=== PATIENT | female | born 1960 | race Caucasian/White ===

== ENCOUNTER → 2017-04-04 | Outpatient (CLI) | payer BC | END | disposition home or self-care (01) | LOC: PCVCIMAG 08:37 | PROVIDERS: ATTEND Internal Medicine | DX: I35.0 Nonrheumatic aortic (valve) stenosis (principal); Q23.9 Congenital malformation of aortic and mitral valves, unspecified; E78.2 Mixed hyperlipidemia; E78.5 Hyperlipidemia, unspecified | CPT/HCPCS: 80061; 93005; 93017; G0463; 93306 ==

== ENCOUNTER → 2017-04-07 | Outpatient (CLI) | payer BC | END | disposition home or self-care (01) | LOC: PCVCIMAG 09:06 | PROVIDERS: ATTEND Internal Medicine | DX: I35.0 Nonrheumatic aortic (valve) stenosis (principal); Q23.9 Congenital malformation of aortic and mitral valves, unspecified; E78.2 Mixed hyperlipidemia; E78.5 Hyperlipidemia, unspecified | CPT/HCPCS: 93306; G0463 ==

== ENCOUNTER → 2017-10-05 | Outpatient (CLI) | payer BC ==
[~2017-10-05] MED LIST: BENZOCAINE ONE 20% MUCOSAL SPRAY.; IOHEXOL 350 MG/ML 100 ML VIAL. ONE; IOHEXOL 350 MG/ML 50 ML VIAL. ONE; IV NORMAL SALINE 1000ML BAG 1,000 ML ONE; LIDOCAINE 1% Multi-Dose 20 ML VIAL. ONE; MIDAZOLAM HCL/PF 2 MG/2 ML VIAL. ONE; fentaNYL PF VIAL 100 MCG/2 ML VIAL ONE
--- NOTE | 2017-10-05 11:13 | PCVCIMAG ---
APPROVED REPORT Study performed: 10/05/2017 09:09:17 EXAM: Comprehensive 2D, Doppler, and color-flow Echocardiogram Patient Location: [facility] Status: routine BSA: 1.89 HR: 71 bpmBP: 133/88 mmHg Rhythm: NSR Other Information Study Quality: Good Indications Aortic Valve Disease Echo Enhancing Agent Indication: Rule Out Septal Defect Agent(s) / Amount(s) Used: Agitated Saline cc Comments: Negative contrast study for shunt flow. 2D Dimensions LVOT Diam: 20.37 (18-24mm) Aortic Valve AoV Peak David.: 4.42 m/s AO Peak Gr.: 83.40 mmHgLVOT Max P.63 mmHg AO Mean Gr.: 47.05 mmHgLVOT Mean P.28 mmHg AO V2 Mean: 3.29 m/sLVOT Max V: 0.79 m/s AO V2 VTI: 103.89 cmLVOT Mean V: 0.52 m/s LEESA (VTI): 0.64 [id number] V1 VTI: 20.32 cm LEESA Vmax: 0.58 cm2 SV (LVOT): 66.19 mL Procedure After obtaining informed consent, patient underwent transesophageal echo in the [facility]. Type of Sedation : Conscious Sedation Sedation was administered by Supriya Singh RN. Sedation was achieved intravenously with: Versed (5mg) Fentanyl (100mcg) Echo enhancement indication: R/O Septal defect. Echo enhancement agent administered: Agitated Saline The BANDAR was performed without complications. Throughout the procedure, the blood pressure, pulse oximetry, cardiac rhythm, and rate were monitored. The patient tolerated the procedure without adverse effects. Recovery from conscious sedation was uneventful and vital signs were stable. Left Ventricle The left ventricle is normal size. There is normal LV segmental wall motion. There is normal left ventricular wall thickness. The left ventricular systolic function is normal. The left ventricular ejection fraction is within the normal range. LVEF is 55-60%. Right Ventricle The right ventricle is normal size. The right ventricular systolic function is normal. Atria The left atrium size is normal. No masses or clots in the left atrium or left atrial appendage. No shunting by contrast bubble injection The right atrium size is normal. Aortic Valve Aortic valve is bicuspid. No aortic regurgitation is present. Calculated aortic valve area is 0.6 cm2 with maximum pressure gradient of 78 mmHg and mean pressure gradient of 47 mmHg. Mitral Valve The mitral valve is normal in structure. Mild mitral regurgitation. Pulmonic Valve The pulmonary valve is normal in structure. There is no pulmonic valvular regurgitation. Great Vessels Ascending aorta measured 4.5 cm. IVC is normal in size and collapses >50% with inspiration. Pericardium There is no pericardial effusion. <Conclusion> The left ventricular systolic function is normal. There is normal LV segmental wall motion. LVEF 55-60%. The left atrium size is normal. No masses or clots in the left atrium or left atrial appendage. No shunting by contrast bubble injection Aortic valve is bicuspid. Calculated aortic valve area is 0.6 cm2 with maximum pressure gradient of 78 mmHg and mean pressure gradient of 47 mmHg. No insufficiency The mitral valve is normal in structure. Mild mitral regurgitation. Thoracic aortic aneurysm 4.5cm There is no pericardial effusion.
--- NOTE | 2017-10-05 18:17 | PCVCINTER ---
APPROVED REPORT Patient Details Patient Status: Out-Patient Room #: 1 The patient is a 57 year-old Female Event Personnel Julissa Ramos MD, Lupillo Menendez RN, Samantha Epps RN, Jaelyn Vences RT(R)() Indication Valvular heart disease Risk Factors Dysplipidemia (Type: 1), Hypercholesterolemia, Last Creatanine 0.9Tobacco History (Never) Procedure Narrative The patient was brought electively to the Cardiac Catheterization Laboratory and was prepped and draped in a sterile manner. The right femoral was infiltrated with 1% Lidocaine subcutaneous anesthesia. The right femoral accessed via ultrasound guidance. A 6fr sheath was inserted into the right femoral artery. Coronary angiography was performed using coronary diagnostic catheters. The right coronary system was accessed and visualized with a JR4 catheter. The left coronary system was accessed and visualized with a JL5 catheter. The left ventricle was accessed and visualized with a angled pigtail catheter. Left ventricular/Aortic Valve gradient assessed via catheter pullback. Left ventriculogram was performed in TOVAR projection. Closure device was deployed with a 6 Fr Mynx. Hemostasis was obtained with manual pressure following sheath removal without any complications. The patient tolerated the procedure well and there were no complications associated with the procedure. There was no hematoma. Coronary Angiography The patient's coronary anatomy is left dominant. Diagnostic Cath Left MainNormal LADMild proximal plaquing, otherwise normal. Diagonal 1Single, large diagonal branch with minimal proximal plaquing CircumflexLarge and anatomically dominant UG3Tiaid, mid vessel arising OM1 and angiographically normal L PDAModerate in size and normal L PLAModerate in size and normal Right CoronarySmall to moderate in size and angiographically normal. Left Ventriculography The left ventricle is normal in size with normal contractility. The left ventricular ejection fraction is estimated to be 55-60%. Left ventricular wall motion abnormalities are not present. There is no mitral insufficiency. Hemodynamics The aortic pressure is 115/61 mmHg with a mean of 84 mmHg. The left ventricular pressure is 163/2 mmHg with a mean of 11 mmHg. The left ventricular end diastolic pressure is 161/2 mmHg. Pullback from the left ventricle to the aorta revealed a 58 mm gradient across the aortic valve. Conclusion 1. Normal global and regional systolic function. EF 65% 2. Mild scattered plaquing in the coronary tree. Left dominant circulation 3. Dilatation of the ascending aorta 4. 58mm gradient on pull back across the aortic valve. Bicuspid valve.
== END | disposition home or self-care (01) ==
LOC: PCVCINTER 08:33
PROVIDERS: ATTEND Internal Medicine
DX: I08.0 Rheumatic disorders of both mitral and aortic valves (principal); E78.5 Hyperlipidemia, unspecified; E78.00 Pure hypercholesterolemia, unspecified
CPT/HCPCS: 93312; 93325; 93458; 99152; 99153; C1751; C1760; C1769; C1894; J1644; J2250; J3010; J7030; Q9967

== ENCOUNTER → 2018-03-02 | Outpatient (CLI) | payer BC | END | disposition home or self-care (01) | LOC: PCVCIMAG 11:29 | DX: I71.2 Thoracic aortic aneurysm, without rupture (principal); I07.1 Rheumatic tricuspid insufficiency; Q23.1 Congenital insufficiency of aortic valve; E78.5 Hyperlipidemia, unspecified; I44.7 Left bundle-branch block, unspecified; R94.31 Abnormal electrocardiogram [ECG] [EKG]; Z95.3 Presence of xenogenic heart valve; Z79.899 Other long term (current) drug therapy; Z79.82 Long term (current) use of aspirin | CPT/HCPCS: 80061; 93005; 93306; G0463 ==

== ENCOUNTER → 2019-09-10 | Outpatient (CLI) | payer BC ==
--- NOTE | 2019-09-10 10:25 | PCVCIMAG ---
APPROVED REPORT Study performed: 09/10/2019 09:29:55 EXAM: Comprehensive 2D, Doppler, and color-flow Echocardiogram Patient Location: Echo lab Status: routine BSA: 1.95 HR: 78 bpmBP: 128/80 mmHg Rhythm: NSR Other Information Study Quality: Good Risk Factors: Cardiac Risk Factors: Hyperlipidemia Indications Bicuspid aortic valve. #23 [employer] bioprothesis. Thoracic Aortic anuersym repair. LBBB 2D Dimensions IVSd: 12.71 (7-11mm)LVOT Diam: 21.54 (18-24mm) LVDd: 40.62 mm PWd: 9.81 (7-11mm)Ascending Ao: 24.58 (22-36mm) LVDs: 32.19 (25-40mm) Left Atrium: 36.02 (27-40mm) Aortic Root: 32.02 mm LV Single Plane 4CH: 50.12 % LV Single Plane 2CH: 55.41 % Biplane EF: 53.4 % Volumes Left Atrial Volume (Systole) Single Plane 4CH: 45.31 mLSingle Plane 2CH: 31.32 mL LA ESV Index: 21.00 mL/m2 Aortic Valve AoV Peak David.: 1.87 m/s AO Peak Gr.: 12.16 mmHgLVOT Max P.78 mmHg AO Mean Gr.: 7.46 mmHgLVOT Mean P.57 mmHg AO V2 Mean: 1.30 m/sLVOT Max V: 1.05 m/s AO V2 VTI: 35.98 cmLVOT Mean V: 0.76 m/s LEESA (VTI): 2.33 [id number] V1 VTI: 23.03 cm LEESA Vmax: 2.05 cm2 SV (LVOT): 83.88 mL Mitral Valve E/A Ratio: 1.1 MV Decel. Time: 148.06 ms MV E Max David.: 0.86 m/s MV A David.: 0.77 m/s TDI E/Lateral E': 7.82E/Medial E': 14.33 Medial E' David.: 0.06 m/s Lateral E' David.: 0.11 m/s Pulmonary Valve PV Peak Gr.: 4.33 mmHg Pulmonary Vein P Vein S: 0.43 m/sP Vein A: 0.55 m/s P Vein D: 0.64 m/sP Vein A Dur.: 103.8 msec P Vein S/D Ratio: 0.67 Tricuspid Valve TR Peak David.: 2.69 m/s TR Peak Gr.: 29.03 mmHg Left Ventricle The left ventricle is normal size. There is normal LV segmental wall motion. There is normal left ventricular wall thickness. Left ventricular systolic function is normal. The left ventricular ejection fraction is within the normal range. LVEF is 55-60%. The left ventricular diastolic function is normal. Right Ventricle The right ventricle is normal size. The right ventricular systolic function is normal. Atria The left atrium size is normal. The right atrium size is normal. Aortic Valve #23 bioprosthesis. Peak gradient is 12 mmHg. Mean gradient is 7 mmHg. No aortic regurgitation is present. There is no aortic valvular stenosis. Mitral Valve The mitral valve is normal in structure. Mild mitral regurgitation. No evidence of mitral valve stenosis. Tricuspid Valve The tricuspid valve is normal in structure. Mild tricuspid regurgitation. Pulmonary artery pressure is 35 mmHg. Pulmonic Valve The pulmonary valve is normal in structure. There is no pulmonic valvular regurgitation. Great Vessels The aortic root is normal in size. IVC is normal in size and collapses >50% with inspiration. Pericardium There is no pericardial effusion. <Conclusion> Left ventricular systolic function is normal. There is normal LV segmental wall motion. LVEF is 55-60%. Normal diastolic function #23 aortic bioprosthesis, normal function. (Peak gradient is 12 mmHg, mean gradient is 7 mmHg). No aortic regurgitation is present. The mitral valve is normal in structure. Mild mitral regurgitation. Mild tricuspid regurgitation. Pulmonary artery pressure of 35 mmHg. There is no pericardial effusion.
== END | disposition home or self-care (01) ==
LOC: PCVCIMAG 09:16
PROVIDERS: ATTEND Internal Medicine
DX: I08.3 Combined rheumatic disorders of mitral, aortic and tricuspid valves (principal); I44.7 Left bundle-branch block, unspecified; I71.2 Thoracic aortic aneurysm, without rupture; E78.5 Hyperlipidemia, unspecified; R06.00 Dyspnea, unspecified; E78.2 Mixed hyperlipidemia; Z95.3 Presence of xenogenic heart valve
CPT/HCPCS: 93306